=== PATIENT | female | born 2000 | race Caucasian/White ===

== ENCOUNTER 2021-10-01 21:28 | Outpatient (CLI) | payer MEDICAID, SELFPAY ==
[2021-10-01 21:46] VITALS: BP 131/74; PULSE 69; PULSE 75; O2SAT 98
[2021-10-01 21:47] VITALS: TEMP 36.3
[2021-10-01 21:50] VITALS: BMI 43.2
[2021-10-01 22:08] VITALS: BP 136/75; PULSE 86
[2021-10-01 22:23] VITALS: BP 134/84; PULSE 78
--- NOTE | 2021-10-03 14:16 | OB.TRI.NOTE ---
HPI - General General Date of Admission: 10/03/21 Date of Service: 10/01/21 Chief Complaint: decreased movement HPI Narrative YADIRA FREEMAN, is a 20 F 1 para 0 presents at 37-0/7 weeks for decreased movement. She denies any vaginal bleeding or leaking of fluid. She denied any regular contractions per nursing report to me. PFSH PFSH Home Medications aspirin 81 mg chewable tablet 81 mg PO DAILY obesity in 10/01/21 [History Last Taken 10/01/21] vits,calcium no.78-iron fumarate-folic acid 29 mg-1 mg tablet (Prenatabs FA) tab 10/01/21 [History Last Taken 10/01/21] Allergy/AdvReac Type Severity Reaction Status Date / Time No Known Allergies Allergy Verified 10/01/21 21:51 Social History Smoking Status: Never smoker NST FHR Rate Baby A Baseline: 130 Variability:: Moderate Accelerations:: 15 x 15 Decelerations:: None NST Reactive:: Yes FHR Category:: Category I Uterine Activity:: no regular ctxs Assessment & Plan (1) Decreased movement affecting management of in third trimester: PLAN: Plan 37-week nulliparous patient with decreased movement. NST was reactive. Patient reported to nurse that she appreciated movement during the nonstress test. heart tones are category 1. Discharged home to follow-up in the office as scheduled or return as needed.
== END 2021-10-01 22:30 | disposition home or self-care (01) ==
LOC: WPOUT 21:30 → WP 21:30
PROVIDERS: Visit Provider Obstetrics & Gynecology
DX: O36.8130 Decreased fetal movements, third trimester, not applicable or unspecified (principal); Z79.82 Long term (current) use of aspirin; Z3A.37 37 weeks gestation of pregnancy
CPT/HCPCS: 59025; 59050; 99218; G0378

== ENCOUNTER 2021-10-15 19:17 | Outpatient (CLI) | payer MEDICAID, SELFPAY ==
[2021-10-15 19:40] VITALS: TEMP 36.7
[2021-10-15 19:41] VITALS: TEMP 36.7
[2021-10-15 19:42] VITALS: BP 123/72; PULSE 81
[2021-10-15 19:45] VITALS: BMI 43.2
[2021-10-15 20:23] LABS: Hematocrit 32.6 % (37-47); Mean Corp Hgb Conc 33.7 g/dL (32-36); Mean Corpuscular Hgb 28.6 pg (27.0-32.0); Mean Corpuscular Volume 84.9 fL (81-99); Mean Platelet Vol. 10.2 fl (6.2-12.0); Platelet Count 252 K/mm3 (150-450); RBC Distribution Width CV 13.9 % (11.6-14.6); RBC Distribution Width SD 42.9 fl (35.1-43.9); Red Blood Count 3.84 M/mm3 (4.2-5.4)
[2021-10-15 20:38] LABS: AST(SGOT) 14 U/L (15-37); Alanine Aminotransfer ALT/SGPT 25 U/L (13-56); Creatinine, Serum 0.83 mg/dL (0.55-1.02); EST Glomerular Filtration Rate 92 mL/min (>60); Est Glom Filt Rate - Afr Amer 111 mL/min (>60); Estimated Creatinine Clearance 95.67 ml/min; Uric Acid 4.6 mg/dL (2.6-6.0)
[2021-10-15 20:47] VITALS: BP 124/82; PULSE 102
[2021-10-15 20:49] LABS: Protein:Creat Ratio 147 mg/g CRE (0-200)
[2021-10-15 21:02] VITALS: BP 124/75; PULSE 90
--- NOTE | 2021-10-16 00:38 | OB.TRI.NOTE ---
HPI - General General Date of Admission: 10/15/21 Date of Service: 10/15/21 Chief Complaint: elevated BP HPI Narrative YADIRA FREEMAN, is a 1-year-old 1 para 0 at 39 weeks gestational age presents complaining of a headache. She denies any visual changes or epigastric pain. The headache was not relieved by Tylenol. She checked her blood pressure at a pharmacy and found to be elevated and called me. I instructed her to go to labor and delivery for evaluation PFSH PFS Home Medications aspirin 81 mg chewable tablet 81 mg PO DAILY obesity in 10/01/21 [History Last Taken 10/15/21 10:00] vits,calcium no.78-iron fumarate-folic acid 29 mg-1 mg tablet (Prenatabs FA) 1 tab PO DAILY 10/01/21 [History Last Taken 10/15/21 10:00] magnesium oxide 400 mg PO DAILY 10/15/21 [History Last Taken 10/15/21 10:00] Allergy/AdvReac Type Severity Reaction Status Date / Time No Known Allergies Allergy Verified 10/15/21 19:46 Social History Smoking Status: Never smoker NST FHR Rate Baby A Baseline: 140 Variability:: Moderate Accelerations:: 15 x 15 Decelerations:: None NST Reactive:: Yes FHR Category:: Category I Uterine Activity:: quiet Assessment & Plan (1) 39 weeks gestation of : PLAN: Blood pressures were in the normal range for patient. Her headache was mild. Labs were normal. No evidence of preeclampsia. Due to acuity of the unit the patient was discharged home to return in the morning for induction of labor.
== END 2021-10-15 21:20 | disposition home or self-care (01) ==
LOC: WPOUT 19:24 → WP 19:28
PROVIDERS: Visit Provider Obstetrics & Gynecology
DX: O99.891 Other specified diseases and conditions complicating pregnancy (principal); R03.0 Elevated blood-pressure reading, without diagnosis of hypertension; R51.9 Headache, unspecified; Z79.82 Long term (current) use of aspirin; Z3A.39 39 weeks gestation of pregnancy
CPT/HCPCS: 84450; G0378 ×2; 85027; 36415; 84550; 82570; 82565; 59025; 59050; 84156; 84460; 99218

== ENCOUNTER 2021-10-18 07:08 | Inpatient (IN) | payer MEDICAID, SELFPAY ==
[2021-10-18] VITALS (61 sets, daily range): BP systolic 106–161; BP diastolic 55–89; PULSE 63–133; TEMP 36.3–37.4; O2SAT 88–100; BMI 43.7
[2021-10-18] MEDS: Lactated Ringers 1,000 ML 50 ML IV (07:54)
[2021-10-18] MEDS: Oxytocin 30 units/NS 500 ml 30 UNITS/500 ML IV.SOLN IV (07:56)
[2021-10-18 08:29] LABS: Absolute Lymphocyte Count 2.02 X10^3/uL (0.83-4.51); Absolute Neutrophil Count 7.8 X10^3/uL (2.0-7.7); Basophil# 0.04 X10^3/uL; Basophil% 0.4 % (0-1); Eosinophil# 0.35 X10^3/uL; Eosinophils% 3.1 % (0-5); Hematocrit 31.3 % (37-47); Hemoglobin 10.3 g/dL (12.0-15.0); Lymphocyte # 2.02 X10^3/ul (0.83-4.51); Lymphocyte % 17.8 % (19-41); Mean Corp Hgb Conc 32.9 g/dL (32-36); Mean Corpuscular Hgb 28.3 pg (27.0-32.0); Mean Platelet Vol. 10.5 fl (6.2-12.0); Monocyte# 1.04 X10^3/uL; Monocyte% 9.1 % (0-10); NRBC Flagged by Analyzer 0 % (0-5); Neutrophil # 7.81 X10^3/uL (2.7-7.7); Neutrophil % 68.5 % (47-70); Platelet Count 232 K/mm3 (150-450); RBC Distribution Width SD 43.8 fl (35.1-43.9); Red Blood Count 3.64 M/mm3 (4.2-5.4); White Blood Count 11.4 K/mm3 (4.4-11.0)
--- NOTE | 2021-10-18 11:42 | PCM.HP.OB ---
HPI - General General Date of Admission: 10/18/21 Date of Service: 10/18/21 Chief Complaint: induction of labor HPI Narrative YADIRA FREEMAN, is a 21 F 1 para 0 who presents at 39+ gestational weeks for induction of labor due to BMI greater than 40. She denied any vaginal bleeding or leaking of fluid. She has had good movement. She recently had a growth ultrasound which showed an AGA fetus with normal fluid volume. Last ultrasound on 09/26/2021 revealed estimated weight of 5 pounds 14 ounces which was approximately 20th percentile Patient had a history of COVID-19 very early in the first trimester. She had some nausea and vomiting of . She has a history of PCOS, migraine headaches, and maternal obesity. Maternal Data Information Final SANDEE: 10/22/21 Gestational age: 39 4/7 PFSH PFSH Home Medications aspirin 81 mg chewable tablet 81 mg PO DAILY obesity in 10/01/21 [History Last Taken 10/15/21 10:00] vits,calcium no.78-iron fumarate-folic acid 29 mg-1 mg tablet (Prenatabs FA) 1 tab PO DAILY 10/01/21 [History Last Taken 10/15/21 10:00] magnesium oxide 400 mg PO DAILY 10/15/21 [History Last Taken 10/15/21 10:00] Allergy/AdvReac Type Severity Reaction Status Date / Time No Known Allergies Allergy Verified 10/15/21 19:46 Social History Smoking Status: Former smoker History Elective abortions Hx Para 0 Spontaneous abortions Hx # Term Pregnancies Ectopic pregnancies Hx # Pregnancies Multiple births # of living children ROS Constitutional Constitutional: Denies fatigue, fever(s) or malaise Eyes Eyes: Denies change in vision ENT HEENT: Denies dizziness or headache(s) Cardiovascular Cardiovascular: Denies chest pain, dyspnea or lightheadedness Respiratory/Chest Respiratory/Chest: Denies cough or dyspnea Gastrointestinal Gastrointestinal: Denies change in bowel habits Genitourinary Genitourinary: Denies burning urination or genital lesions Integumentary Integumentary: Denies rash Neurologic Neurologic: Denies confusion, dizziness, headache(s), numbness or weakness Vital Signs Vital Signs Vital Signs: 10/18/21 07:27 10/18/21 07:27 10/18/21 07:27 Temperature 98.8 F Temperature Source Pulse Rate 91 Blood Pressure 120/73 BP Systolic 120 BP Diastolic 73 Pulse Ox 10/18/21 07:27 10/18/21 10:16 10/18/21 10:16 Temperature Temperature Source Temporal Pulse Rate 76 Blood Pressure 120/74 BP Systolic 120 BP Diastolic 74 Pulse Ox 10/18/21 10:16 10/18/21 10:16 10/18/21 10:17 Temperature 99.3 F H Temperature Source Temporal Pulse Rate Blood Pressure BP Systolic BP Diastolic Pulse Ox 97 Weight Weight: 119.3 kg Body Mass Index (BMI) 43.7 Physical Exam Const alert and no apparent distress General Appearance: cooperative HEENT normocephalic Resp normal respiratory effort Cardio regular rate GI soft to palpation GI Narrative: gravid, nontender, appropriate for gestational age Extremity no calf tenderness General Extremity: edema Skin no wounds Rashes: No rashes noted Psych activity/motor behavior normal Labs Labs Labs: Blood Type A POSITIVE Antibody Screen NEGATIVE Hct 31.3 % (37-47) L Hgb 10.3 g/dL (12.0-15.0) L Assessment & Plan (1) 39 weeks gestation of : PLAN: Risk benefits and alternatives to induction labor and were discussed with patient, her questions were answered to her satisfaction she desires to proceed. Estimated weight is less than 4500 g by ultrasound and clinically, in clinic pelvis clinically adequate to expect vaginal delivery. We will proceed with Pitocin artificial rupture membranes as needed. May have epidural or other routine pain control measures as needed and desired during labor. (2) Encounter for induction of labor: (3) Supervision of other high risk pregnancies, third trimester: (4) Maternal obesity syndrome in third trimester: (5) BMI 40.0-44.9, adult:
[2021-10-18] MEDS: LACTATED RINGERS 500 ML 999 ML IV ×2 (15:35→19:53)
[2021-10-18] MEDS: fentaNYL-bupivacaine (epidural) 100 ML BAG EPIDURAL ×2 (16:17→19:53)
[2021-10-18] MEDS: Lactated Ringers 1,000 ML 200 ML IV (19:26)
[2021-10-18] MEDS: Oxytocin 30 units/NS 500 ml 30 UNITS/500 ML IV.SOLN 334 UNITS IV (22:28)
--- NOTE | 2021-10-18 22:43 | EX.PCM.OBRPT ---
Assessment & Plan (1) (spontaneous vaginal delivery): Maternal Data Information Final SANDEE: 10/22/21 Gestational age: 39 4/7 Vaginal Delivery Maternal Presentation Maternal Presentation: Medically Indicated Induction Type of Induction: Pitocin and Amniotomy Operative Information Date of Procedure: 10/18/21 Pre-Operative Diagnosis: labor Post-Operative Diagnosis: same Surgery / Procedure Performed: Forceps Assisted Vaginal Delivery Type of Anesthesia: Epidural Special Medications: none Drain: Justin to straight drain Estimated Blood Loss: 400 Time of Delivery: :26 Findings Description of Procedure: A vigorous female was delivered YELITZA over a first-degree vaginal laceration. The remainder the was delivered with maternal pushing and gentle traction only in less than 15 seconds. The Pitocin infusion was initiated for active management of the third stage. The cord was clamped and cut after 1 minute. The infant was attended to by the waiting nursing staff. The placenta was delivered spontaneously and intact. The cervix and vagina were intact. The first-degree vaginal laceration was repaired with 3-0 Vicryl Rapide suture in a running standard fashion was hemostatic. Sponge and needle counts were correct. A vaginal sweep was completed by me. Presentation: YELITZA Amniotic Membrane Rupture Type: Artificial Amniotic Fluid Description: Clear Placental Delivery Description: Spontaneous Placenta Disposition: [facility] Cord Vessel Description: 3 Vessels Cord Entanglement: None A Gender: Female (Jessica) (1 minute): 9 (5 minute): 9 Delayed Cord Clamping: Yes Post Vaginal Delivery Medications Given After Delivery: IV Pitocin Episiotomy Description: None Laceration: 1st degree (Vaginal) Complication Complications: None
[2021-10-19] VITALS (17 sets, daily range): BP systolic 117–147; BP diastolic 53–75; PULSE 71–116; RESP 15–16; TEMP 36.2–36.9; O2SAT 95–100
[2021-10-19] MEDS: Acetaminophen 500 MG Tablet 1000 MG PO ×2 (11:23→19:54)
--- NOTE | 2021-10-19 13:58 | PCM.PN.OB ---
Subjective Subjective Pain well controlled. Average lochia. Objective Data Objective Data Vital Signs: Vital Signs Temp Pulse Resp BP Pulse Ox O2 Del Method 98.1 F 92 16 135/74 H 96 Room Air 10/19/21 12:28 10/19/21 12:28 10/19/21 12:28 10/19/21 12:28 10/19/21 12:28 10/19/21 12:28 Oxygen Delivery Method Room Air Weight: 119.3 kg Body Mass Index (BMI) 43.7 Intake & Output: Intake and Output for Last 24 Hours 10/17/21 10/18/21 10/19/21 23:59 23:59 23:59 Intake Total 3054.00 / 3054.00 333 / 333 Output Total 900 / 900 1900 / 1900 Balance 2154.00 / 2154.00 -1567 / -1567 Lab / Micro Data Result Diagrams: 10/18/21 07:45 Micro: Microbiology 10/18/21 07:50 Nasal Secretion SARS-CoV-2 Antigen (Rapid) - Final Physical Exam Const alert and no apparent distress Narrative: Fundus firm, below umbilicus. Assessment & Plan (1) (spontaneous vaginal delivery): PLAN: day #1. Doing well. Working on breast-feeding. Routine care.
[2021-10-20 02:10] VITALS: BP 122/71; PULSE 75; RESP 16; TEMP 36.2
[2021-10-20 08:00] VITALS: BP 132/74; PULSE 74; RESP 15; TEMP 36.1; O2SAT 98
--- NOTE | 2021-10-20 09:45 | PCM.PN.OB ---
Subjective Subjective Pain well controlled. Average lochia. Objective Data Objective Data Vital Signs: Vital Signs Temp Pulse Resp BP Pulse Ox O2 Del Method 97.0 F L 74 15 132/74 H 98 Room Air 10/20/21 08:00 10/20/21 08:00 10/20/21 08:00 10/20/21 08:00 10/20/21 08:00 10/20/21 08:00 Oxygen Delivery Method Room Air Weight: 119.3 kg Body Mass Index (BMI) 43.7 Intake & Output: Intake and Output for Last 24 Hours 10/18/21 10/19/21 10/20/21 23:59 23:59 23:59 Intake Total 3054.00 / 3054.00 333 / 333 Output Total 900 / 900 1900 / 1900 Balance 2154.00 / 2154.00 -1567 / -1567 Lab / Micro Data Result Diagrams: 10/18/21 07:45 Micro: Microbiology 10/18/21 07:50 Nasal Secretion SARS-CoV-2 Antigen (Rapid) - Final Physical Exam Const alert and no apparent distress Narrative: Fundus firm, below umbilicus. Assessment & Plan (1) (spontaneous vaginal delivery): PLAN: day #2 status post vaginal delivery. Patient and are doing well. Ready for discharge home.
--- NOTE | 2021-10-20 09:46 | PCM.DC.SUM ---
Providers Date of Admission: 10/18/21 Primary Care Physician: Anette Primary Care Phys Reason For Visit: INDUCTION Diagnosis Discharge Diagnosis (1) (spontaneous vaginal delivery): Status: Acute Code(s): O80 - Encounter for full-term uncomplicated delivery Plan: day #2 status post vaginal delivery. Patient and are doing well. Ready for discharge home. Medications at Discharge Home Medications aspirin 81 mg chewable tablet 81 mg PO DAILY obesity in 10/01/21 vits,calcium no.78-iron fumarate-folic acid 29 mg-1 mg tablet (Prenatabs FA) 1 tab PO DAILY 10/01/21 magnesium oxide 400 mg PO DAILY Check with primary doctor 10/15/21 Hospital Course Operations None Procedures None Summary of Care Provided Hospital Course: Patient was admitted on 10/18/2021 for induction of labor. She has spontaneous vaginal delivery without complications. Her course was unremarkable and by day #2 she is ready for discharge home. Weight / BMI Weight Weight: 119.3 kg Body Mass Index (BMI) 43.7 ABG / Lab / Microbiology Data Result Diagrams: 10/18/21 07:45 Microbiology: Microbiology 10/18/21 07:50 Nasal Secretion SARS-CoV-2 Antigen (Rapid) - Final D/C Instructions May resume sexual activity in: 6 weeks Please Follow Up With: Jolie Erwin MD When: Follow up with our office in 1-2 and 6 weeks or as needed. [phone] Meaningful Use Info Meaningful Use Diagnoses (Choose all that apply): None applicable Discharge Plan Admission Admit Date/Time: 10/18/21 07:08 Attending Provider: Jolie Erwin Primary Care Provider: Care Physician,Anette Primary Discharge Orders/Prescriptions Prescriptions: No Action aspirin [Baby Aspirin] 81 mg Tablet,Chewable 81 mg PO DAILY Prenatabs FA 29-1 mg Tablet 1 tab PO DAILY magnesium oxide 400 mg magnesium Capsule 400 mg PO DAILY Referrals / Follow Up: Claire PhysicianAnette Primary [Primary Care Provider] -
== END 2021-10-20 10:25 | disposition home or self-care (01) | DRG 560 ==
PROVIDERS: Admitting Provider Obstetrics & Gynecology; Referring Provider Obstetrics & Gynecology; Visit Provider Obstetrics & Gynecology
DX: O99.213 Obesity complicating pregnancy, third trimester (principal); Z37.0 Single live birth; O70.0 First degree perineal laceration during delivery; Z79.82 Long term (current) use of aspirin; Z87.891 Personal history of nicotine dependence; Z3A.39 39 weeks gestation of pregnancy; Z86.16 Personal history of COVID-19
CPT/HCPCS: 36415; 59025; 59050; 82565; 82570; 84156; 84450; 84460; 84550; 85025; 85027; 86850; 86900; 86901; 87426; 99218; J7120; G0378

== ENCOUNTER 2024-06-21 08:45 | Inpatient (IN) | payer OTHER, SELFPAY ==
[2024-06-21] VITALS (23 sets, daily range): BP systolic 80–169; BP diastolic 44–92; PULSE 51–78; RESP 15–22; TEMP 36.7–37.2; O2SAT 98; BMI 36.3
[2024-06-21] MEDS: Lactated Ringers 1,000 ML 50 ML IV ×2 (09:22→14:21)
[2024-06-21 09:30] LABS: Absolute Lymphocyte Count 2.34 X10^3/uL (0.83-4.51); Basophil# 0.05 X10^3/uL; Basophil% 0.5 % (0-1); Eosinophil# 0.47 X10^3/uL; Eosinophils% 4.3 % (0-5); Hemoglobin 12.5 g/dL (12.0-15.0); Lymphocyte # 2.34 X10^3/ul (0.83-4.51); Lymphocyte % 21.6 % (19-41); Mean Corp Hgb Conc 34.7 g/dL (32-36); Mean Corpuscular Hgb 30.4 pg (27.0-32.0); Mean Corpuscular Volume 87.6 fL (81-99); Monocyte% 8.3 % (0-10); NRBC Flagged by Analyzer 0 % (0-5); Neutrophil # 7.02 X10^3/uL (2.7-7.7); Neutrophil % 64.7 % (47-70); Platelet Count 226 K/mm3 (150-450); RBC Distribution Width CV 13.3 % (11.6-14.6); RBC Distribution Width SD 41.8 fl (35.1-43.9); Red Blood Count 4.11 M/mm3 (4.2-5.4); White Blood Count 10.8 K/mm3 (4.4-11.0)
[2024-06-21] MEDS: Oxytocin 15 Units/NS 250ml 15 UNITS/250 ML IV.SOLN 2 UNITS IV (09:34)
[2024-06-21 10:14] LABS: Syphilis Antibodies Nonreactive (Nonreactive)
[2024-06-21] MEDS: fentaNYL-bupivacaine (epidural) 100 ML BAG EPIDURAL (12:29)
[2024-06-21] MEDS: Lactated Ringers 1,000 ML 999 ML IV (13:53)
--- NOTE | 2024-06-21 16:34 | PCM.HP.OB ---
HPI - General General Date of Admission: 06/21/24 HPI Narrative YADIRA LOZANO, is a 23 F who presents in labor. SROM this am with irregular mild contractions. at 39w4d Maternal Data Information SANDEE Calculator Estimated Delivery Date Method Current WG Current Estimate 06/24/24 Manual 39w 4d Final SANDEE: 06/24/24 PFSH PFSH Medical History (Updated 06/21/24 @ 16:40 by Cat Messina CNM) (spontaneous vaginal delivery) Medical History no medical history Home Medications ?Medication ?Instructions ?Recorded ?Last Taken ?Type vits,calcium no.78-iron 1 tab PO DAILY 10/01/21 10/17/21 History fumarate-folic acid 29 mg-1 mg tablet (Prenatabs FA) magnesium oxide 400 mg PO DAILY Check with primary 10/15/21 10/17/21 History doctor Allergy/AdvReac Type Severity Reaction Status Date / Time No Known Allergies Allergy Verified 10/15/21 19:46 Family History no significant family his Surgical History no surgical history Social History Smoking Status: Former smoker History 1 Elective abortions Hx Para 1 Spontaneous abortions Hx # Term Pregnancies Ectopic pregnancies Hx # Pregnancies Multiple births # of living children 1 NST FHR Rate Baby A Baseline: 140 Variability:: Moderate Accelerations:: 15 x 15 Decelerations:: None FHR Category:: Category I Vital Signs Vital Signs Vital Signs: 06/21/24 08:39 06/21/24 08:39 06/21/24 10:28 Pulse Rate 63 Respiratory Rate Blood Pressure 137/86 H 141/87 H BP Systolic 137 141 BP Diastolic 86 87 Pulse Ox 06/21/24 10:28 06/21/24 10:28 06/21/24 12:14 Pulse Rate 65 Respiratory Rate 18 Blood Pressure 169/92 H BP Systolic 169 BP Diastolic 92 Pulse Ox 06/21/24 12:14 06/21/24 12:20 06/21/24 12:20 Pulse Rate 58 L 63 Respiratory Rate Blood Pressure 159/85 H BP Systolic 159 BP Diastolic 85 Pulse Ox 06/21/24 12:20 06/21/24 12:24 06/21/24 12:24 Pulse Rate 69 Respiratory Rate 22 H Blood Pressure 144/81 H BP Systolic 144 BP Diastolic 81 Pulse Ox 06/21/24 12:24 06/21/24 12:24 06/21/24 12:29 Pulse Rate Respiratory Rate 17 Blood Pressure 140/73 H BP Systolic 140 BP Diastolic 73 Pulse Ox 98 06/21/24 12:29 06/21/24 12:29 06/21/24 12:34 Pulse Rate 67 Respiratory Rate 17 Blood Pressure 151/77 H BP Systolic 151 BP Diastolic 77 Pulse Ox 06/21/24 12:34 06/21/24 12:34 06/21/24 13:42 Pulse Rate 61 Respiratory Rate 16 Blood Pressure 80/44 L BP Systolic 80 BP Diastolic 44 Pulse Ox 06/21/24 13:42 06/21/24 13:45 06/21/24 13:45 Pulse Rate 51 L 54 L Respiratory Rate Blood Pressure 112/63 BP Systolic 112 BP Diastolic 63 Pulse Ox 06/21/24 13:56 06/21/24 13:56 06/21/24 14:43 Pulse Rate 54 L Respiratory Rate Blood Pressure 113/64 116/60 BP Systolic 113 116 BP Diastolic 64 60 Pulse Ox 06/21/24 14:43 06/21/24 16:24 06/21/24 16:24 Pulse Rate 54 L 53 L Respiratory Rate Blood Pressure 130/62 H BP Systolic 130 BP Diastolic 62 Pulse Ox Weight Weight: 232 lb Body Mass Index (BMI) 36.3 Labs Labs Labs: Blood Type A POSITIVE Antibody Screen NEGATIVE Hct 36.0 % (37-47) L Hgb 12.5 g/dL (12.0-15.0) Syphilis Total Ab Nonreactive (Nonreactive) Rhogam given: No GBS negative RPR negative Rubella Immune HBsAG negative HepC negative HIV negative A positive Assessment & Plan (1) SROM (spontaneous rupture of membranes): (2) 39 weeks gestation of : (3) Obesity affecting : PLAN: Plan 1) Admit to labor and delivery 2) Routine labs 3) Continuous EFM 4) Pain management upon request 5) Dr.Russell martinez physician and notified of patient status, above assessment, and plan.
--- NOTE | 2024-06-21 16:41 | OB.VAGDELI_ITS ---
Assessment & Plan (1) Vaginal delivery: (2) Lactating mother: Maternal Data Information SANDEE Calculator Estimated Delivery Date Method Current WG Current Estimate 06/24/24 Manual 39w 4d Vaginal Delivery Maternal Presentation Maternal Presentation: Spontaneous Rupture of Membranes Vaginal Delivery Information Procedure Performed: Spontaneous Vaginal Delivery Surgeon/Practitioner: Cat Messina Date of Procedure: 06/21/24 Pre-Procedure Diagnosis: SROM Post-Procedure Diagnosis: Type of anesthesia: Epidural Estimated Blood Loss: 300ml Time of Delivery: 16:17 Findings Description of procedure: Progressed to complete with urge to push. Epidural for pain management. of viable female infant over intact perineum. APGARS 8,9 respectively. head delivered with body immediately forthcoming. Delivered by nursing staff due to rapid dilation and spontaneous ejective reflex.Placed on maternal abdomen, strong cry. Mouth and nares suctioned for secretions. Pitocin started for active 3rd stage management. Cord doubly clamped and cut by FOB after pulsations ceased, delayed cord clamping. Placenta delivered intact via delgadillo, 3 vessel cord intact. Perineum inspected and revealed intact. Fundus firm and hemostasis achieved. EBL 300ml. Mom and baby stable, planning to breastfeed. Family bonding well. notified of delivery. Presentation: Vertex Amniotic Membrane Rupture Type: Spontaneous Amniotic Fluid Description: Clear Placental Delivery Description: Spontaneous Placenta Disposition: [facility] Specimen collected: No Cord Vessel Description: 3 Vessels Cord Entanglement: None A Gender: Female (1 minute): 9 (5 minute): 10 Delayed Cord Clamping: Yes Hand Edger client technologies analyst: No Post Vaginal Deli Medications given after delivery: IV Pitocin Episiotomy Description: None Laceration: None Complication Complications: No
[2024-06-21] MEDS: Oxytocin 15 Units/NS 250ml 15 UNITS/250 ML IV.SOLN 83 UNITS IV (16:54)
[2024-06-22] VITALS (17 sets, daily range): BP systolic 131–165; BP diastolic 77–92; PULSE 55–74; RESP 12–16; TEMP 36.6–37.1; O2SAT 97–98
[2024-06-22 05:25] LABS: Absolute Lymphocyte Count 2.98 X10^3/uL (0.83-4.51); Absolute Neutrophil Count 8.4 X10^3/uL (2.0-7.7); Basophil# 0.05 X10^3/uL; Basophil% 0.4 % (0-1); Eosinophil# 0.35 X10^3/uL; Eosinophils% 2.7 % (0-5); Hemoglobin 12.2 g/dL (12.0-15.0); Lymphocyte # 2.98 X10^3/ul (0.83-4.51); Lymphocyte % 22.9 % (19-41); Mean Corp Hgb Conc 33.9 g/dL (32-36); Mean Corpuscular Hgb 29.8 pg (27.0-32.0); Mean Platelet Vol. 10.4 fl (6.2-12.0); Monocyte# 1.21 X10^3/uL; Monocyte% 9.3 % (0-10); NRBC Flagged by Analyzer 0 % (0-5); Neutrophil # 8.35 X10^3/uL (2.7-7.7); Neutrophil % 64.2 % (47-70); Platelet Count 206 K/mm3 (150-450); RBC Distribution Width CV 13.3 % (11.6-14.6); RBC Distribution Width SD 42.9 fl (35.1-43.9); Red Blood Count 4.09 M/mm3 (4.2-5.4)
[2024-06-22 08:12] LABS: ALB/GLOB Ratio 1.2 RATIO (0.9-2.4); AST(SGOT) 22 U/L (<=31); Alanine Aminotransfer ALT/SGPT 15 U/L (<=34); Albumin, Serum 3.4 g/dL (3.5-5.0); Alkaline Phosphatase 157 U/L (35-104); Anion Gap 12 (5-15); BUN 10 mg/dL (4-19); BUN/Creat Ratio 13.6 RATIO (10-20); Calcium,Total 9.2 mg/dL (7.6-11.0); Carbon Dioxide 19.9 mmol/L (21.0-32.0); Chloride 106 mmol/L (98-108); Creatinine, Serum 0.71 mg/dL (0.70-1.20); EST Glomerular Filtration Rate 121 (>60); Estimated Creatinine Clearance 152.48 ml/min (50-250); Globulin 2.7 g/dL (2.2-4.2); Glucose 75 mg/dL (70-99); Potassium 4.3 mmol/L (3.3-5.1); Protein, Total 6.1 g/dL (5.9-8.4); Sodium Level 137 mmol/L (133-145); Total Bilirubin 0.39 mg/dL (0.00-1.30)
--- NOTE | 2024-06-22 08:33 | PN.OBGYN_ITS ---
Subjective Subjective Patient seen at bedside. Ambulating and voiding without difficulty. without difficulty. Denies headache, vision changes, SOB or CP. Objective Data Objective Data Vital Signs: Vital Signs Temp Pulse Resp BP Pulse Ox O2 Del Method 98.5 F 68 16 131/78 H 98 Room Air 06/22/24 08:26 06/22/24 08:26 06/22/24 08:26 06/22/24 08:26 06/22/24 08:26 06/22/24 08:26 Oxygen Delivery Method Room Air Weight: 232 lb Body Mass Index (BMI) 36.3 Intake & Output: Intake and Output for Last 24 Hours 06/20/24 06/21/24 06/22/24 23:59 23:59 23:59 Intake Total 2032.09 / 2.09 Output Total 750 / 750 250 / 250 Balance 1282.09 / 1282.09 -250 / -250 Lab / Micro Data 06/22/24 05:10 06/22/24 05:10 Labs: Laboratory Results - last 24 hr 06/21/24 09:00: WBC 10.8, RBC 4.11 L, Hgb 12.5, Hct 36.0 L, MCV 87.6, MCH 30.4, MCHC 34.7, RDW Std Deviation 41.8, RDW Coeff of Courtney 13.3, Plt Count 226, MPV 11.0, Immature Gran % (Auto) 0.600, Neut % (Auto) 64.7, Lymph % (Auto) 21.6, [place] % (Auto) 8.3, Eos % (Auto) 4.3, Baso % (Auto) 0.5, Absolute Neuts (auto) 7.0, Absolute Lymphs (auto) 2.34, Nucleated RBC % 0, Syphilis Total Ab Nonreactive, Blood Type A POSITIVE, Antibody Screen NEGATIVE 06/22/24 05:10: WBC 13.0 H, RBC 4.09 L, Hgb 12.2, Hct 36.0 L, MCV 88.0, MCH 29.8, MCHC 33.9, RDW Std Deviation 42.9, RDW Coeff of Courtney 13.3, Plt Count 206, MPV 10.4, Immature Gran % (Auto) 0.500, Neut % (Auto) 64.2, Lymph % (Auto) 22.9, [place] % (Auto) 9.3, Eos % (Auto) 2.7, Baso % (Auto) 0.4, Absolute Neuts (auto) 8.4 H, Absolute Lymphs (auto) 2.98, Nucleated RBC % 0, Sodium 137, Potassium 4.3, Chloride 106, Carbon Dioxide 19.9 L, Anion Gap 12, BUN 10, Creatinine 0.71, Estim Creat Clear Calc 152.48, Est GFR (MDRD) Non-Af 121, BUN/Creatinine Ratio 13.6, Glucose 75, Calcium 9.2, Total Bilirubin 0.39, AST 22, ALT 15, Alkaline Phosphatase 157 H, Total Protein 6.1, Albumin 3.4 L, Globulin 2.7, Albumin/Globulin Ratio 1.2 Assessment & Plan (1) Lactating mother: (2) Vaginal delivery: (3) Elevated blood pressure reading: PLAN: Plan PPD 1 Blood pressures elevated - ranging 130-160/70-90's Recommended monitoring today and reevaluate for discharge tomorrow Patient and agree with plan of care
--- NOTE | 2024-06-22 20:42 | PCM.PN.CNM ---
Subjective Subjective Patient seen at bedside. Denies any headache, vision changes, SOB, or CP. Blood pressures remain slightly elevated at 130-140/80-90's. Objective Data Objective Data Vital Signs: Vital Signs Temp Pulse Resp BP Pulse Ox O2 Del Method 98.7 F 57 L 16 141/85 H 97 Room Air 06/22/24 16:17 06/22/24 20:06 06/22/24 16:17 06/22/24 20:06 06/22/24 20:06 06/22/24 16:17 Oxygen Delivery Method Room Air Weight: 232 lb Body Mass Index (BMI) 36.3 Intake & Output: Intake and Output for Last 24 Hours 06/20/24 06/21/24 06/22/24 23:59 23:59 23:59 Intake Total 2.09 / 2031. Output Total 750 / 750 250 / 250 Balance 1282.09 / 1282.09 -250 / -250 Lab / Micro Data 06/22/24 05:10 06/22/24 05:10 Labs: Laboratory Results - last 24 hr 06/22/24 05:10: WBC 13.0 H, RBC 4.09 L, Hgb 12.2, Hct 36.0 L, MCV 88.0, MCH 29.8, MCHC 33.9, RDW Std Deviation 42.9, RDW Coeff of Courtney 13.3, Plt Count 206, MPV 10.4, Immature Gran % (Auto) 0.500, Neut % (Auto) 64.2, Lymph % (Auto) 22.9, [place] % (Auto) 9.3, Eos % (Auto) 2.7, Baso % (Auto) 0.4, Absolute Neuts (auto) 8.4 H, Absolute Lymphs (auto) 2.98, Nucleated RBC % 0, Sodium 137, Potassium 4.3, Chloride 106, Carbon Dioxide 19.9 L, Anion Gap 12, BUN 10, Creatinine 0.71, Estim Creat Clear Calc 152.48, Est GFR (MDRD) Non-Af 121, BUN/Creatinine Ratio 13.6, Glucose 75, Calcium 9.2, Total Bilirubin 0.39, AST 22, ALT 15, Alkaline Phosphatase 157 H, Total Protein 6.1, Albumin 3.4 L, Globulin 2.7, Albumin/Globulin Ratio 1.2 Assessment & Plan (1) Elevated blood pressure reading: (2) Lactating mother: (3) Vaginal delivery: (4) Obesity affecting : PLAN: Plan Discussed blood pressures with Dr. Csatillo Will start patient on Labetalol 100 mg PO BID When D/C home tomorrow- will send with BP monitoring system Discussed plan of care with patient
[2024-06-22] MEDS: Labetalol 100 MG Tablet PO (22:14)
[2024-06-23 01:30] VITALS: BP 138/79; PULSE 57
[2024-06-23 01:54] VITALS: BP 138/79; PULSE 63; RESP 16; O2SAT 97
--- NOTE | 2024-06-23 06:36 | PCM.DC.SUM ---
Providers Date of Admission: 06/21/24 Primary Care Physician: No Primary Care Phys Reason For Visit: VAGINAL DELIVERY Diagnosis Discharge Diagnosis (1) Elevated blood pressure reading: Status: Acute Code(s): R03.0 - Elevated blood-pressure reading, without diagnosis of hypertension (2) Lactating mother: Status: Acute Code(s): Z39.1 - Encounter for care and examination of lactating mother (3) Vaginal delivery: Status: Acute Code(s): O80 - Encounter for full-term uncomplicated delivery (4) Obesity affecting : Status: Acute Code(s): O99.210 - Obesity complicating , unspecified trimester Plan PPD 2 Slightly elevated blood pressures- elevated from patient's normal ranges Labetalol 100 mg PO BID D/C home with BP monitoring Follow up in office Discussed plan of care with patient and Medications at Discharge Home Medications vits,calcium no.78-iron fumarate-folic acid 29 mg-1 mg tablet (Prenatabs FA) 1 tab PO DAILY 10/01/21 magnesium oxide 400 mg PO DAILY Check with primary doctor 10/15/21 labetalol 100 mg tablet 100 mg PO BID #60 tabs 06/23/24 Hospital Course Operations None Procedures None Summary of Care Provided Minutes Spent on Discharge: 15 Hospital Course: Patient had vaginal delivery. Hospital course was uneventful. Physical Exam Narrative Patient seen at bedside. Denies pain. Ambulating and voiding without difficulty. Lochia decreased. Desires discharge home today. Denies headache, vision changes , SOB , CP, or RUQ pain. Const alert and oriented x3 General Appearance: Negative for in distress HEENT normocephalic Eyes General Eye: normal appearance of both eyes Neck General: normal visual inspection Chest Chest: symmetrical chest wall rise Resp normal respiratory effort and normal air movement Effort and Inspection: symmetric chest movement; Negative for tachypneic Auscultation: clear to auscultation bilaterally Cardio regular rate and regular rhythm Peripheral Pulses: pulses 2+ throughout GI normal to inspection, nondistended, normoactive bowel sounds Narrative: Ice to perineum OB / External & Speculum: vaginal bleeding and other Lochia decreasing Uterus Palpation: uterus fundus firm (Below U) Extremity normal to inspection, full ROM and normal capillary refill Skin no rashes or lesions noted Neuro oriented x3, CN's II-XII intact bilaterally and gait normal Psych mental status grossly normal, thought process normal and activity/motor behavior normal Weight / BMI Weight Weight: 232 lb Body Mass Index (BMI) 36.3 ABG / Lab / Microbiology Data 06/22/24 05:10 06/22/24 05:10 Laboratory: Laboratory Results - last 24 hr 06/22/24 05:10: Sodium 137, Potassium 4.3, Chloride 106, Carbon Dioxide 19.9 L, Anion Gap 12, BUN 10, Creatinine 0.71, Estim Creat Clear Calc 152.48, Est GFR (MDRD) Non-Af 121, BUN/Creatinine Ratio 13.6, Glucose 75, Calcium 9.2, Total Bilirubin 0.39, AST 22, ALT 15, Alkaline Phosphatase 157 H, Total Protein 6.1, Albumin 3.4 L, Globulin 2.7, Albumin/Globulin Ratio 1.2 D/C Instructions Discharge Diet: No restrictions Discharge Activity: Return to Normal Activity, No Restrictions, May Drive, May Shower and May Take a Tub Bath (Warm water only. No bath salts, soaps, bubbles) May resume sexual activity in: 6-8 weeks Weight Bearing Status: Weight bearing as tolerated Call your doctor if you observe: Fever of 101 or Higher, Inability to urinate, Using more than 1 pad per hour, Shortness of breath, Dizziness, Chest pain, Calf discomfort and Uncontrolled pain DC O2, CPAP, BIPAP Needs Home O2 Discharge instructions: No Additional Instructions: Take blood pressures before taking medications. Do not take if BP <90/<60 Call office if pressures begin to increase and if any readings of 160/110 Please Follow Up With: [facility] Parag SUGGS When: Next week for BP check Meaningful Use Info Meaningful Use Meaningful Use Diagnoses (Choose all that apply): None applicable Ischemic Stroke Statin Dosing Therapy Reference: STATIN DOSE THERAPY REFERENCE: * Patients > 75 years receive moderate or high dose statin therapy. * Patients 75 years or YOUNGER should receive HIGH intensity statin dose unless contraindicated. You will be required to document reason for non-treatment if statin daily dose does not meet guidelines. HIGH DOSE STATIN THERAPY DAILY Atorvastatin > than or = to 40 mg Rosuvastatin > than or = to 20 mg Amlodipine + Atorvastatin > than or = to 2.5/40 mg Ezetimibe + Simvastatin 10/80 mg Simvastatin 80mg Discharge Plan Admission Admit Date/Time: 06/21/24 08:45 Primary Reason for Your Visit: Labor and Delivery Attending Provider: Cat Messina Primary Care Provider: Care Physician,No Primary Discharge Orders/Prescriptions Prescriptions: New labetalol 100 mg Tablet 100 mg PO BID Qty: 60 1RF Continued Prenatabs FA 29-1 mg Tablet 1 tab PO DAILY magnesium oxide 400 mg magnesium Capsule 400 mg PO DAILY Referrals / Follow Up: Tonia Paiz CNM [Med Staff - Adv Practice Prof] - Care Physician,No Primary [Primary Care Provider] - Disposition Disposition (needs filled in before D/C Order can be placed): Home, Self Care
[2024-06-23 08:06] VITALS: BP 118/78; PULSE 69; RESP 16; TEMP 36.9
[2024-06-23 08:07] VITALS: BP 118/78; PULSE 69
--- NOTE | 2024-06-29 15:48 | NURSING ---
Follow up phone call made, no answer, left voicemail
== END 2024-06-23 08:45 | disposition home or self-care (01) | DRG 807 ==
LOC: WPOUT 08:53 → WP 08:53
PROVIDERS: Admitting Provider Advanced Practice Midwife; Referring Provider Advanced Practice Midwife; Visit Provider Advanced Practice Midwife
DX: O42.02 Full-term premature rupture of membranes, onset of labor within 24 hours of rupture (principal); Z37.0 Single live birth; R03.0 Elevated blood-pressure reading, without diagnosis of hypertension; O99.214 Obesity complicating childbirth; O99.893 Other specified diseases and conditions complicating puerperium; Z3A.39 39 weeks gestation of pregnancy; Z87.891 Personal history of nicotine dependence
CPT/HCPCS: 59025; 59050; 80053; 85025; 86780; 86850; 86900; 86901; 99221; G0378